=== PATIENT | female | born 1970 | race Caucasian/White ===

== ENCOUNTER → 2021-10-18 | Outpatient (CLI) | payer MEDICAID, SELFPAY ==
[2021-10-18 12:09] LABS: Absolute Lymphocyte Count 2.18 X10^3/uL (0.83-4.51); Absolute Neutrophil Count 3.1 X10^3/uL (2.0-7.7); Basophil# 0.03 X10^3/uL; Basophil% 0.5 % (0-1); Eosinophil# 0.16 X10^3/uL; Eosinophils% 2.7 % (0-5); Hematocrit 39.7 % (37-47); Hemoglobin 12.3 g/dL (12.0-15.0); Lymphocyte # 2.18 X10^3/ul (0.83-4.51); Lymphocyte % 37.1 % (19-41); Mean Corpuscular Hgb 28.4 pg (27.0-32.0); Mean Corpuscular Volume 91.7 fL (81-99); Monocyte# 0.36 X10^3/uL; Monocyte% 6.1 % (0-10); NRBC Flagged by Analyzer 0 % (0-5); Neutrophil # 3.14 X10^3/uL (2.7-7.7); Neutrophil % 53.4 % (47-70); Platelet Count 370 K/mm3 (150-450); RBC Distribution Width CV 13.4 % (11.6-14.6); RBC Distribution Width SD 45.7 fl (35.1-43.9); Red Blood Count 4.33 M/mm3 (4.2-5.4); White Blood Count 5.9 K/mm3 (4.4-11.0)
[2021-10-18 12:33] LABS: ALB/GLOB Ratio 0.9 RATIO (0.9-2.4); AST(SGOT) 20 U/L (15-37); Alanine Aminotransfer ALT/SGPT 55 U/L (13-56); Albumin, Serum 3.4 g/dL (3.2-5.0); Alkaline Phosphatase 57 U/L (45-117); Anion Gap 5 (5-15); BUN 21 mg/dL (7-18); Calcium,Total 8.9 mg/dL (8.5-10.1); Chloride 106 mmol/L (98-107); Cholesterol 200 mg/dL (200); EST Glomerular Filtration Rate 112 mL/min (>60); Est Glom Filt Rate - Afr Amer 135 mL/min (>60); Globulin 3.6 g/dL (2.2-4.2); Glucose 98 mg/dL (74-106); High Density Lipoprotein 50 mg/dL; Potassium 4.1 mmol/L (3.5-5.1); Sodium Level 139 mmol/L (136-145); Triglycerides 104 mg/dL; Very Low Density Lipoprotein 21 mg/dL (5-40)
[2021-10-18 12:47] LABS: Hemoglobin A1c 5.6 % (3.8-5.6)
== END | disposition home or self-care (01) ==
LOC: BIMLAB 08:12
PROVIDERS: PCP Internal Medicine; Referring Provider Internal Medicine; Visit Provider Internal Medicine
DX: R73.03 Prediabetes (principal); E78.5 Hyperlipidemia, unspecified
CPT/HCPCS: 36415; 80053; 80061; 83036; 85025

== ENCOUNTER → 2021-10-26 | Outpatient (CLI) | payer MEDICAID, SELFPAY ==
--- NOTE | 2021-10-26 13:19 | BI_ITS ---
MAMMOGRAPHY - BILATERAL SCREENING REASON FOR EXAM: Female, 51 years old. Routine annual screening examination. PERTINENT HISTORY: Non-contributory. TECHNIQUE: Digital bilateral breast bolivar (3D mammographic acquisition) in the CC and MLO projections. 2-D mediolateral oblique (MLO) and craniocaudad (CC) views of both breasts were obtained. CAD: Full Field Digital Mammography with Computer Added Detection was performed. COMPARISON: Comparison is made with prior study dated 07/18/2020. FINDINGS: Breast Composition: There are scattered areas of fibroglandular density. Persistent 5.1 mm well-defined nodule in the upper lateral portion of the left breast. Correlation with ultrasound is recommended. Stable benign appearing bilateral axillary lymph nodes. No other significant abnormalities are identified. There has been no significant change since the prior study. BI/SCRN MAMM (CAD)W/BOLIVAR BILAT IMPRESSION: Stable 5.1 mm well-defined nodule in the upper lateral aspect of the left breast. Correlation with ultrasound is recommended. ASSESSMENT CATEGORY: BIRADS Category 0: Incomplete. Need additional imaging evaluation. A letter regarding these results will be sent to the patient by the facility within 30 days. Approximately 10% of breast cancers are not detected by mammography. A normal mammogram should not delay biopsy of a clinically suspicious abnormality. [id number] Electronically Signed: Aurelio Cannon MD at 14:12 EDT ,
== END | disposition home or self-care (01) ==
LOC: OPBI 13:17
PROVIDERS: PCP Internal Medicine; Visit Provider Internal Medicine
DX: Z12.31 Encounter for screening mammogram for malignant neoplasm of breast (principal)
CPT/HCPCS: 77063; 77067

== ENCOUNTER → 2021-11-02 | Outpatient (CLI) | payer MEDICAID, SELFPAY ==
--- NOTE | 2021-11-02 10:56 | US_ITS ---
STUDY: ULTRASOUND BREAST - LEFT REASON FOR EXAM: Female, 51 years old. Abnormal screening mammogram. TECHNIQUE: Axial and longitudinal images of the LEFT breast were performed with a high resolution ultrasound transducer. # OF IMAGES: 18 COMPARISON: Comparison is made with prior mammogram dated 10/26/2021 and prior outside examination dated 07/18/2020. FINDINGS: LEFT Breast: The mammographic abnormality corresponds to a 5 mm x 6 mm x 4 mm hypoechoic solid nodule with a central calcification at the 3 o''clock position the breast at 3 cm from the nipple. Biopsy recommended. US/Breast Limited Unilateral IMPRESSION: 5 mm x 6 mm x 4 mm hypoechoic solid nodule with a central calcification at the 3 o''clock position of the breast and 3 sinus on the nipple. Biopsy recommended. ASSESSMENT CATEGORY: BIRADS Category 4: Suspicious - Biopsy Should Be Considered. A letter regarding these results will be sent to the patient by the facility within 30 days. Electronically Signed: Aurelio Cannon MD at 13:49 EDT ,
== END | disposition home or self-care (01) ==
LOC: OPUS 10:54
PROVIDERS: PCP Internal Medicine; Visit Provider Internal Medicine
DX: R92.8 Other abnormal and inconclusive findings on diagnostic imaging of breast (principal)
CPT/HCPCS: 76642

== ENCOUNTER → 2021-11-09 | Outpatient (CLI) | payer MEDICAID, SELFPAY ==
--- NOTE | 2021-11-09 13:40 | BRBX_PTH ---
PATIENT: EYAL COPPOLA LOC: [facility] U#:[id number] AGE/SX: 51/F ROOM: RE11/09/[address]: Dr. Garett Mccormick MD : 1970 BED: DIS: 11/09/2021 SPEC #: [id number] RECD: 11/09/21 14:13 STATUS: JOSÉ REAroldo #: [id number] SAVANNAH: 11/09/21 13:[address]: Garett Mccormick DEPT: SURGICAL PATHOLOGY RECD BY: Tere North ENTERED: 11/10/21 07:55 SP TYPE: BREAST BX OTHR DR: Dr. Florencio Peters MD Tissues: Left breast, NOS Procedures: Surgery Specimen Level IV HEADER OPERATION: Left breast biopsy PRE-OP DIAGNOSIS: Left breast mass TISSUE SUBMITTED: Left breast tissue MICROSCOPIC DIAGNOSIS Left breast mass, core biopsy: Hyalinized fibroadenoma. Negative for atypia or malignancy. See comment. SJ:lizeth 11/14/2021 COMMENT Correlation with clinical, radiologic findings and appropriate follow up are necessary. MICROSCOPIC DESCRIPTION Slides are reviewed. GROSS DESCRIPTION Received in fixative is one container labeled with the patient's name and designated left breast. The specimen consists of multiple elongated fragments of matias-yellow fibroadipose tissue that in aggregate measure 3 x 1.5 x 0.2 cm. The entire specimen is submitted in one cassette. / VALERY:lizeth 11/10/2021 TC:1 CPT: 90286
== END | disposition home or self-care (01) ==
LOC: LABSPEC 14:16
PROVIDERS: PCP Internal Medicine; Referring Provider Surgery; Visit Provider Surgery
DX: D24.2 Benign neoplasm of left breast (principal)
CPT/HCPCS: 88305

== ENCOUNTER → 2023-09-20 | Outpatient (CLI) | payer MEDICAID, SELFPAY ==
[2023-09-20 16:52] LABS: Absolute Lymphocyte Count 2.78 X10^3/uL (0.83-4.51); Absolute Neutrophil Count 4.4 X10^3/uL (2.0-7.7); Basophil# 0.04 X10^3/uL; Basophil% 0.5 % (0-1); Eosinophil# 0.28 X10^3/uL; Eosinophils% 3.5 % (0-5); Hematocrit 40.9 % (37-47); Hemoglobin 12.9 g/dL (12.0-15.0); Lymphocyte # 2.78 X10^3/ul (0.83-4.51); Lymphocyte % 34.9 % (19-41); Mean Corp Hgb Conc 31.5 g/dL (32-36); Mean Corpuscular Volume 88.7 fL (81-99); Mean Platelet Vol. 9.6 fl (6.2-12.0); Monocyte# 0.47 X10^3/uL; Monocyte% 5.9 % (0-10); NRBC Flagged by Analyzer 0 % (0-5); Neutrophil # 4.35 X10^3/uL (2.7-7.7); Neutrophil % 54.6 % (47-70); Platelet Count 384 K/mm3 (150-450); RBC Distribution Width CV 13.6 % (11.6-14.6); RBC Distribution Width SD 44.5 fl (35.1-43.9); Red Blood Count 4.61 M/mm3 (4.2-5.4)
[2023-09-20 17:05] LABS: Vitamin D,25 Hydroxy 37.1 ng/mL
[2023-09-20 17:12] LABS: ALB/GLOB Ratio 1.1 RATIO (0.9-2.4); AST(SGOT) 19 U/L (15-37); Alanine Aminotransfer ALT/SGPT 38 U/L (13-56); Albumin, Serum 3.7 g/dL (3.2-5.0); Alkaline Phosphatase 64 U/L (45-117); Anion Gap 7 (5-15); BUN 20 mg/dL (7-18); BUN/Creat Ratio 30.6 RATIO (10-20); CRP 7.76 mg/L (0.0-3.0); Calcium,Total 9.5 mg/dL (8.5-10.1); Chloride 103 mmol/L (98-107); Creatinine, Serum 0.65 mg/dL (0.55-1.02); EST Glomerular Filtration Rate 101 mL/min (>60); Est Glom Filt Rate - Afr Amer 122 mL/min (>60); Ferritin 38 ng/mL (8-252); Globulin 3.5 g/dL (2.2-4.2); Glucose 109 mg/dL (74-106); Iron 57 ug/dL (50-170); Protein, Total 7.2 g/dL (6.4-8.2); Sodium Level 139 mmol/L (136-145); T4 Free Direct 0.77 ng/dL (0.76-1.46); Thyroid Stim Hormone (TSH) 2.02 uIU/mL (0.358-3.74)
[2023-09-20 17:33] LABS: Erythrocyte Sedimentation Rate 13 mm/hr (0-30)
[2023-09-26 16:10] LABS: Lyme IgG P18 Ab Absent (.); Lyme IgG P23 Ab Absent (.); Lyme IgG P28 Ab Absent (.); Lyme IgG P30 Ab Absent (.); Lyme IgG P39 Ab Absent (.); Lyme IgG P41 Ab Absent (.); Lyme IgG P45 Ab Absent (.); Lyme IgG P58 Ab Absent (.); Lyme IgG P66 Ab Absent (.); Lyme IgG P93 Ab Absent (.); Lyme IgG WB Interpretation Negative (.); Lyme IgM P23 Ab Absent (.); Lyme IgM P39 Ab Absent (.); Lyme IgM P41 Ab Absent (.); Lyme IgM WB Interpretation Negative (.)
== END | disposition home or self-care (01) ==
LOC: BIMLAB 14:37
PROVIDERS: PCP Internal Medicine; Referring Provider Nurse Practitioner; Visit Provider Nurse Practitioner
DX: E78.5 Hyperlipidemia, unspecified (principal); R53.83 Other fatigue; M25.561 Pain in right knee; R73.03 Prediabetes; W57.XXXA Bitten or stung by nonvenomous insect and other nonvenomous arthropods, initial encounter
CPT/HCPCS: 36415; 80053; 82306; 82728; 83036; 83540; 84439; 84443; 85025; 85652; 86140; 86617

== ENCOUNTER → 2023-09-26 | Outpatient (CLI) | payer MEDICAID, SELFPAY ==
--- NOTE | 2023-09-26 09:18 | RAD_ITS ---
STUDY: X-RAY - RIGHT KNEE REASON FOR EXAM: Female, 53 years old. SWELLING TECHNIQUE: 4 view(s) of the knee. COMPARISON: None. FINDINGS: Normal visualized distal femur. Normal visualized proximal tibia and fibula. Normal proximal tibiofibular articulation. There is mild degenerative arthrosis of the medial femorotibial compartment. Normal lateral femorotibial compartment. Normal patellofemoral articulation. The soft tissue structures are unremarkable. RAD/Knee 4 or More Views IMPRESSION: Degenerative arthrosis. Electronically Signed: Ravinder Laird MD at 9:38 EDT ,
[2023-09-26 11:06] LABS: Cholesterol 233 mg/dL (200); High Density Lipoprotein 49 mg/dL; Triglycerides 179 mg/dL; Very Low Density Lipoprotein 36 mg/dL (5-40)
== END | disposition home or self-care (01) ==
PROVIDERS: PCP Internal Medicine; Referring Provider Nurse Practitioner; Visit Provider Nurse Practitioner
DX: M25.561 Pain in right knee (principal); E78.5 Hyperlipidemia, unspecified
CPT/HCPCS: 36415; 73564; 80061

== ENCOUNTER → 2023-10-10 | Outpatient (CLI) | payer MEDICAID, SELFPAY ==
--- NOTE | 2023-10-10 10:34 | BI_ITS ---
MAMMOGRAPHY - BILATERAL SCREENING REASON FOR EXAM: Female, 53 years old. Routine annual screening examination. PERTINENT HISTORY: Non-contributory. Prior left ultrasound-guided breast biopsy. TECHNIQUE: Digital bilateral breast bolivar (3D mammographic acquisition) in the CC and MLO projections. 2-D mediolateral oblique (MLO) and craniocaudad (CC) views of both breasts were obtained. CAD: Full Field Digital Mammography with Computer Added Detection was performed. COMPARISON: Comparison is made with prior study dated October 26, 2021. FINDINGS: Breast Composition: The breasts are almost entirely fatty. There are no dominant masses or suspicious calcifications. A tissue clip marker is seen adjacent to a 5 mm partially calcified nodule in the upper lateral aspect of the left breast. Stable small bilateral axillary lymph nodes. No other significant abnormalities are identified. There has been no significant change since the prior study. BI/SCRN MAMM (CAD)W/BOLIVAR BILAT IMPRESSION: Stable bilateral screening mammogram. Yearly follow-up mammogram recommended. (A) ASSESSMENT CATEGORY: BIRADS Category 2: Benign. A letter regarding these results will be sent to the patient by the facility within 30 days. Approximately 10% of breast cancers are not detected by mammography. A normal mammogram should not delay biopsy of a clinically suspicious abnormality. [id number] Electronically Signed: Aurelio Cannon MD at 11:59 EDT ,
== END | disposition home or self-care (01) ==
PROVIDERS: PCP Internal Medicine; Referring Provider Nurse Practitioner; Visit Provider Nurse Practitioner
DX: Z12.31 Encounter for screening mammogram for malignant neoplasm of breast (principal)
CPT/HCPCS: 77063; 77067

== ENCOUNTER → 2023-11-07 | Outpatient (CLI) | payer MEDICAID, SELFPAY ==
[2023-11-13 13:08] LABS: HPV APTIMA, High Risk Negative (Negative)
== END | disposition home or self-care (01) ==
LOC: LAB 16:34 → LABSPEC 16:43
PROVIDERS: PCP Internal Medicine; Referring Provider Nurse Practitioner Family; Visit Provider Nurse Practitioner Family
DX: Z12.4 Encounter for screening for malignant neoplasm of cervix (principal)
CPT/HCPCS: 87624; 88175; G0145

== ENCOUNTER 2024-05-20 12:24 | Emergency (ER) | payer MEDICAID, SELFPAY ==
[2024-05-20 12:25] VITALS: BP 139/95; PULSE 95; RESP 16; TEMP 36.7; O2SAT 99; BMI 33.5
[2024-05-20 13:54] LABS: Bacteria 0 SEEN /hpf (None Seen); Mucous, Urine 0 SEEN /hpf (<or=2+); White Blood Cells 0 SEEN /hpf (0-5)
[2024-05-20 13:57] LABS: Absolute Lymphocyte Count 3.01 X10^3/uL (0.83-4.51); Basophil# 0.03 X10^3/uL; Basophil% 0.3 % (0-1); Color, Urine Yellow (Yellow); Eosinophil# 0.14 X10^3/uL; Eosinophils% 1.6 % (0-5); Glucose, Dipstick Normal (Normal); Hematocrit 40.5 % (37-47); Hemoglobin 13.1 g/dL (12.0-15.0); Ketone-Dipstick Negative (Negative); Leukocyte Esterase-Dipstick Negative /ul (Negative); Lymphocyte # 3.01 X10^3/ul (0.83-4.51); Lymphocyte % 34.8 % (19-41); Mean Corp Hgb Conc 32.3 g/dL (32-36); Mean Corpuscular Hgb 27.8 pg (27.0-32.0); Mean Corpuscular Volume 85.8 fL (81-99); Mean Platelet Vol. 9.6 fl (6.2-12.0); Monocyte# 0.44 X10^3/uL; Monocyte% 5.1 % (0-10); NRBC Flagged by Analyzer 0 % (0-5); Neutrophil # 5.02 X10^3/uL (2.7-7.7); Nitrite-Dipstick Negative (Negative); Occult Blood-Urine Negative /ul (Negative); Platelet Count 384 K/mm3 (150-450); Protein-Dipstick Negative (Negative); RBC Distribution Width CV 12.9 % (11.6-14.6); RBC Distribution Width SD 40.2 fl (35.1-43.9); Red Blood Count 4.72 M/mm3 (4.2-5.4); Specific Gravity, Urine 1.005 (1.002-1.030); Urine Bilirubin Dipstick Negative (Negative); Urine Clarity Clear (Clear); Urine Urobilinogen Normal (Normal); Urine pH 6.5 (5.0 - 8.0); White Blood Count 8.7 K/mm3 (4.4-11.0)
[2024-05-20 14:16] LABS: ALB/GLOB Ratio 1.5 RATIO (0.9-2.4); AST(SGOT) 16 U/L (<=31); Alanine Aminotransfer ALT/SGPT 23 U/L (<=34); Albumin, Serum 4.4 g/dL (3.5-5.0); Alkaline Phosphatase 57 U/L (35-104); Anion Gap 11 (5-15); BUN 15 mg/dL (4-19); Carbon Dioxide 26.5 mmol/L (21.0-32.0); Chloride 101 mmol/L (98-108); EST Glomerular Filtration Rate 103 (>60); Estimated Creatinine Clearance 92.82 ml/min (50-250); Glucose 94 mg/dL (70-99); Lipase 29 U/L (13-75); Protein, Total 7.4 g/dL (5.9-8.4); Red Blood Cells-Urine 0 SEEN /hpf (0-5); Sodium Level 139 mmol/L (133-145); Squamous Epithelial Cells - UA 0-5 SEEN /hpf (5-10); Total Bilirubin 0.22 mg/dL (0.00-1.30)
[2024-05-20 14:24] VITALS: BP 120/83; PULSE 85; RESP 17; O2SAT 99
[2024-05-20] MEDS: 0.9% Normal Saline (1000mL) 1,000 ML 999 ML IV (14:59)
--- NOTE | 2024-05-20 15:08 | CT_ITS ---
EXAM: CT Abdomen and Pelvis With Intravenous Contrast CLINICAL INDICATION: LEFT LOWER QUADRANT ABDOMINAL PAIN TECHNIQUE: Axial computed tomography images of the abdomen and pelvis with intravenous contrast. This CT exam was performed using one or more of the following dose reduction techniques: automated exposure control, adjustment of the mA and/or kV according to patient size, and/or use of iterative reconstruction technique. COMPARISON: No relevant prior studies available. FINDINGS: LUNG BASES: Unremarkable. No mass. No consolidation. ABDOMEN: LIVER: Hepatomegaly with fatty infiltration. GALLBLADDER AND BILE DUCTS: Unremarkable. No calcified stones. No ductal dilation. PANCREAS: Unremarkable. No mass. No ductal dilation. SPLEEN: Unremarkable. No splenomegaly. ADRENALS: Unremarkable. No mass. KIDNEYS AND URETERS: Unremarkable. No stones within either kidney. No hydronephrosis. STOMACH AND BOWEL: Scattered diverticula in the colon. There is mucosal thickening in the sigmoid colon and descending colon with surrounding inflammation consistent with acute diverticulitis. No abscess. No obstruction. PELVIS: APPENDIX: No findings to suggest acute appendicitis. BLADDER: Unremarkable. No mass. REPRODUCTIVE: Unremarkable as visualized. ABDOMEN and PELVIS: INTRAPERITONEAL SPACE: Unremarkable. No free air. No significant fluid collection. BONES/JOINTS: No acute fracture. No dislocation. SOFT TISSUES: Umbilical hernia containing fat. VASCULATURE: Unremarkable. No abdominal aortic aneurysm. LYMPH NODES: Unremarkable. No enlarged lymph nodes. CT/Abdomen/Pelvis W IV Cont ONLY IMPRESSION: 1. Scattered diverticula in the colon. There is mucosal thickening in the sig moid colon and descending colon with surrounding inflammation consistent with acute diverticulitis. No abscess. 2. Hepatomegaly with fatty infiltration. 3. Umbilical hernia containing fat. 4. No obstructive uropathy. Reading [facility]
[2024-05-20 15:32] LABS: Lactic Acid < 1.0 mmol/L (0.0-2.0)
--- NOTE | 2024-05-20 15:45 | EX.ED.DYSGE1 ---
HPI History of Present Illness Chief Complaint: Abd Pain Narrative Narrative: Chief complaint and HPI: Left lower quadrant abdominal pain. 53-year-old female presents for evaluation of left lower quadrant abdominal pain. Onset abdominal pain Saturday. Pain is described as cramping. Associated symptoms are constipation, nausea, vomiting, fever, decreased p.o. intake. Triage note states diarrhea but patient denies diarrhea to me. She states she is scheduled for an outpatient colonoscopy screening but has yet to have 1 performed. She denies any history of diverticulitis. Has been taking Tylenol for the pain. Denies any URI symptoms, cough, shortness of breath, chest pain, dysuria. Has a previous history of an ectopic that required surgery. Review of systems: See HPI Medications: As listed on the chart Allergies: As listed on the chart PFSH: Per chart Vital signs: As listed on the chart. Reviewed. Physical exam: Gen: A&O x3, NAD Head: Normocephalic, atraumatic Eyes: No sclera icterus, conjunctiva clear ENT: Moist mucous membranes Neck: Trachea midline, No JVD CV: RRR, no murmurs, no peripheral edema Resp: Lungs CTA BL, no w/r/c GI: Abd soft, non-distended, tender to palpation in left lower quadrant, no r/r : No CVA tenderness Musc: Full ROM, no deformity Skin: Warm, dry Neuro: Alert, oriented, grossly intact, sensation intact Psych: Cooperative, appropriate mood and affect [facility] Medical History (Updated 05/20/24 @ 16:[address] Didier Garcia, DO) Ectopic Osteoarthritis Left breast mass Abnormal mammogram of left breast Hyperlipidemia Borderline type 2 diabetes mellitus Colon cancer screening Preventative health care High cholesterol Headache, migraine Depression with anxiety Pre-diabetes History of acute alcohol intoxication Home Medications ?Medication ?Instructions ?Recorded ?Last Taken ?Type ibuprofen 200 mg capsule 400 mg PO Q6H PRN 11/09/21 Unknown History multivitamin 1 tab PO DAILY 09/20/23 Unknown History amoxicillin 875 mg-potassium 1 tab PO BID 10 days #20 tabs 05/20/24 Unknown Rx clavulanate 125 mg tablet fluconazole 150 mg tablet 150 mg PO Q3D 2 doses #2 tabs 05/20/24 Unknown Rx ondansetron 4 mg disintegrating 4 mg PO Q8H PRN PRN Nausea #10 tabs 05/20/24 Unknown Rx tablet Allergy/AdvReac Type Severity Reaction Status Date / Time No Known Allergies Allergy Verified 01/24/24 11:13 Family History (Updated 11/07/23 @ 15:23 by Olivia Farah) Father Age: 74 Non Hodgkin's lymphoma Heart disease Surgical History S/P endometrial ablation Social History (Updated 11/07/23 @ 15:24 by Olivia Farah) adopted: No household members: spouse and children number of children: 2 current occupation: Self employed current occupational exposures/hazards: No pets and animals: Yes leisure activities: exercise, art, reading and volunteer work history of recent travel: No sexually active: Yes Smoking Status: Former smoker how long ago did patient quit smokin yrs second hand exposure: No alcohol intake: former year quit: 2016 details: Sober in 2002, had 2 relapses over the years, sober since 2016 substance use type: does not use diet: low carbohydrate well-balanced diet: daily or most days eating out: rarely or never during the past year weight has: increased > 10 lbs what type of physical activity do you participate in: walking and other frequency: daily duration: 15-30 minutes/day lesly/church: Church seatbelt use: always do you feel safe at home: Yes EXAM Physical Exam Const Vital Signs: 05/20/24 12:25 05/20/24 14:24 05/20/24 16:18 Temperature 98.1 F 98.2 F Temperature Source Temporal Pulse Rate 95 85 89 Respiratory Rate 16 17 18 Blood Pressure 139/95 H 120/83 H 124/80 H Blood Pressure Mean 109 95 94 Pulse Ox 99 99 99 Oxygen Delivery Method Room Air Room Air MDM MDM MDM Narrative Medical decision making narrative: 53-year-old female presents for evaluation of left lower quadrant abdominal pain. Differential diagnosis includes but is not limited to diverticulitis, gastroenteritis, pancreatitis, other intra-abdominal pathology, urolithiasis viral illness, electrolyte abnormality, dehydration, UTI. Abdominal pain workup ordered including CT abdomen pelvis. Patient was offered pain medication as well as antinausea medication but declined. CBC without leukocytosis or anemia. BMP unremarkable. Lactic acid unremarkable. Hepatic panel unremarkable. Lipase unremarkable. UA negative for UTI. CT abdomen pelvis showed scattered diverticuli in the colon. Mucosal thickening in the sigmoid colon and descending colon with surrounding inflammation consistent with acute diverticulitis. No abscess. No perforation. On reevaluation, patient's pain is controlled. She was educated on the findings. Plan is to discharge home on a 10-day course of Augmentin. She was educated to stay on a liquid diet for the next 2 days and slowly advance. Tylenol and Motrin as needed for pain. Zofran as needed for nausea. Strict return precautions. Follow-up with PCP as well as general surgery. She confirmed understand the plan. Patient discharged home. Impression: 1. Acute uncomplicated diverticulitis Lab Data Labs: Laboratory Results - last 24 hr 05/20/24 05/20/24 13:40 14:45 WBC 8.7 RBC 4.72 Hgb 13.1 Hct 40.5 MCV 85.8 MCH 27.8 MCHC 32.3 RDW Std Deviation 40.2 RDW Coeff of Remberto 12.9 Plt Count 384 MPV 9.6 Immature Gran % (Auto) 0.200 Neut % (Auto) 58.0 Lymph % (Auto) 34.8 Perkins % (Auto) 5.1 Eos % (Auto) 1.6 Baso % (Auto) 0.3 Absolute Neuts (auto) 5.0 Absolute Lymphs (auto) 3.01 Nucleated RBC % 0 Sodium 139 Potassium 4.0 Chloride 101 Carbon Dioxide 26.5 Anion Gap 11 BUN 15 Creatinine 0.70 Estim Creat Clear Calc 92.82 Est GFR (MDRD) Non-Af 103 BUN/Creatinine Ratio 22.0 H Glucose 94 Lactic Acid < 1.0 Calcium 10.0 Total Bilirubin 0.22 AST 16 ALT 23 Alkaline Phosphatase 57 Total Protein 7.4 Albumin 4.4 Globulin 3.0 Albumin/Globulin Ratio 1.5 Lipase 29 Urine Color Yellow Urine Clarity Clear Urine pH 6.5 Ur Specific [place] 1.005 Urine Protein Negative Urine Glucose (UA) Normal Urine Ketones Negative Urine Occult Blood Negative Urine Nitrite Negative Urine Bilirubin Negative Urine Urobilinogen Normal Ur Leukocyte Esterase Negative Urine RBC 0 SEEN Urine WBC 0 SEEN Ur Squamous Epith Cells 0-5 SEEN Urine Bacteria 0 SEEN Urine Mucus 0 SEEN Radiography Diagnostic Testing: Clinical Impression(s) from Imaging Studies Abdomen/Pelvis CT 05/20/24 15:08 IMPRESSION: 1. Scattered diverticula in the colon. There is mucosal thickening in the sigmoid colon and descending colon with surrounding inflammation consistent with acute diverticulitis. No abscess. 2. Hepatomegaly with fatty infiltration. 3. Umbilical hernia containing fat. 4. No obstructive uropathy. Reading Location: [facility] Discharge Plan Triage Chief Complaint: Abd Pain ED Provider: Didier Garcia Dx/Rx/DC Orders Clinical Impression: Diverticulitis Instructions: Diverticulosis and Diverticulitis, Diverticulitis Dc, ED Clear Liquid Diet, ED Full Liquid Diet Prescriptions: New amoxicillin-pot clavulanate 875-125 mg tablet 1 tab PO BID 10 Days Qty: 20 0RF ondansetron 4 mg tablet,disintegrating 4 mg PO Q8H PRN PRN (Reason: Nausea) Qty: 10 0RF fluconazole 150 mg tablet 150 mg PO Q3D Qty: 2 0RF Rx Instructions: may repeat second dose 72 hrs after first dose if symptoms persist No Action ibuprofen 200 mg capsule 400 mg PO Q6H PRN multivitamin Tablet 1 tab PO DAILY Primary Care Provider: Florencio Peters Referrals: Florencio Peters MD [Primary Care Provider] - 3-5 Days Geovany Jara MD [Med Staff - Active Staff] - 3-5 Days Activity Restrictions/Additional Instructions: Return back to the ED if symptoms change or worsen. Follow-up with general surgery and PCP. Tylenol and Motrin as needed for pain. Stay on a liquid diet for the next 48 hours. Advance diet as tolerated. Take all of your antibiotics. You received the first dose here in the emergency department. Print Language: Panamanian Disposition Disposition: Home, Self Care Discharge Date/Time: 05/20/24 16:19
[2024-05-20] MEDS: Amox/Clavulanate 875 MG Tablet PO (16:15)
[2024-05-20 16:18] VITALS: BP 124/80; PULSE 89; RESP 18; TEMP 36.8; O2SAT 99
== END 2024-05-20 16:19 | disposition home or self-care (01) ==
PROVIDERS: Emergency Provider Surgery; PCP Internal Medicine; Visit Provider Surgery
DX: K57.92 Diverticulitis of intestine, part unspecified, without perforation or abscess without bleeding (principal); R73.03 Prediabetes; E78.00 Pure hypercholesterolemia, unspecified; Z87.891 Personal history of nicotine dependence; Z79.899 Other long term (current) drug therapy
CPT/HCPCS: 74177; 80053; 81001; 83605; 83690; 85025; 96360; 99283; Q9967; A4216

== ENCOUNTER → 2024-10-09 | Outpatient (CLI) | payer MEDICAID, SELFPAY ==
[2024-10-09 16:35] LABS: Hematocrit 38.2 % (37-47); Hemoglobin 12.3 g/dL (12.0-15.0); Immature Granulocytes Count 0.020 X10^3/uL (0.0-0.0); Mean Corp Hgb Conc 32.2 g/dL (32-36); Mean Corpuscular Volume 86.8 fL (81-99); Mean Platelet Vol. 10.2 fl (6.2-12.0); NRBC Flagged by Analyzer 0 % (0-5); Platelet Count 326 K/mm3 (150-450); RBC Distribution Width CV 12.9 % (11.6-14.6); RBC Distribution Width SD 41.2 fl (35.1-43.9); Red Blood Count 4.40 M/mm3 (4.2-5.4); White Blood Count 7.6 K/mm3 (4.4-11.0)
[2024-10-09 17:18] LABS: AST(SGOT) 16 U/L (<=31); Alanine Aminotransfer ALT/SGPT 20 U/L (<=34); Albumin, Serum 4.2 g/dL (3.5-5.0); Alkaline Phosphatase 51 U/L (35-104); Anion Gap 11 (5-15); BUN 18 mg/dL (4-19); BUN/Creat Ratio 24.0 RATIO (10-20); Calcium,Total 9.8 mg/dL (7.6-11.0); Carbon Dioxide 26.6 mmol/L (21.0-32.0); Chloride 103 mmol/L (98-108); Cholesterol 232 mg/dL (<=200); Globulin 2.5 g/dL (2.2-4.2); Glucose 94 mg/dL (70-99); Low Density Lipoprotein Calc. 152 mg/dL; Potassium 4.4 mmol/L (3.3-5.1); Triglycerides 187 mg/dL; Very Low Density Lipoprotein 37 mg/dL (5-40); cholesterol:hdl ratio screen 5.45
== END | disposition home or self-care (01) ==
LOC: BIMLAB 14:35
PROVIDERS: PCP Internal Medicine; Referring Provider Internal Medicine; Visit Provider Internal Medicine
DX: Z00.00 Encounter for general adult medical examination without abnormal findings (principal); R73.03 Prediabetes
CPT/HCPCS: 36415; 80053; 80061; 83036; 85025

== ENCOUNTER → 2024-11-05 | Outpatient (CLI) | payer MEDICAID, SELFPAY ==
--- NOTE | 2024-11-05 14:56 | CT_ITS ---
PROCEDURE: LIMITED CHEST CT CARDIAC ONLY 11/05/2024 REASON FOR EXAM: RISK ASSESSMENT Family history of coronary artery disease. TECHNIQUE: LIMITED CHEST CT CARDIAC ONLY CONTRAST: None One or more dose reduction techniques were used (e.g., Automated exposure control, adjustment of the mA and/or kV according to patient size, use of iterative reconstruction technique). RADIATION DOSE SUMMARY: CTDlvol: 12.19 mGy DLP: 195.04 mGycm COMPARISON: None FINDINGS: Small benign-appearing mediastinal lymph nodes. The heart is not enlarged. No significant coronary artery calcification is seen. Minimal anterior pericardial thickening The visualized portions of the lungs are clear. CT/Limited Chest CT Cardiac Only IMPRESSION: No significant coronary artery calcification is present. Reading Location: [id number]
--- NOTE | 2024-11-09 09:51 | CA.SCORE ---
Calcium Scoring Date of Study:: 11/05/24 Indications Indications: Risk assessment Coronary Calcium Scoring: High-resolution Computed Tomographic imaging of the chest was performed on [11/05/2024], with particular attention paid to the coronary arteries. Images from the examination were analyzed for the presence and extent of coronary artery calcification , using coronary calcium quantification software. The patient tolerated the procedure well and there were no complications. The results of the coronary calcification analysis are provided below. Findings Coronary Artery Left Main (LM): 0 Left Anterior Descending (LAD): 0 Left Circumflex (LCX): 0 Right Coronary Artery (RCA): 0 Total Agatston Score: 0 Percentile Rankin Calcium Scoring Interpretation: Different methods to categorize the overall amount of coronary plaque. Overall amount CAC SIS Visual of coronary plaque P1 Mild -100 <2 1-2 vessels with mild amount of plaque P2 Moderate 101-300 3-4 1-2 vessels with moderate amount, 3 vessels with mild amount of plaque P3 Severe 301-999 5-7 3 vessels with moderate amount, 1 vessel with severe amount of plaque P4 Extensive >1000 >8 2-3 vessels with severe amount of plaque Conclusion: No atherosclerotic plaquing noted.
== END | disposition home or self-care (01) ==
PROVIDERS: PCP Internal Medicine; Referring Provider Internal Medicine; Visit Provider Internal Medicine
DX: E78.5 Hyperlipidemia, unspecified (principal); R73.03 Prediabetes
CPT/HCPCS: 75571; 76380

== ENCOUNTER → 2024-11-10 | Outpatient (CLI) | payer MEDICAID, SELFPAY ==
--- NOTE | 2024-11-10 10:45 | BI_ITS ---
EXAM: SCRN MAMM (CAD)W/BOLIVAR BILAT DATE: 11/10/2024 CLINICAL HISTORY: F, Age 54 y/o , BREAST CANCER SCREENING No family history. Prior left ultrasound-guided breast biopsy. TECHNIQUE: Procedure Code: [id number] Modality: MG Procedure: SCRN MAMM (CAD)W/BOLIVAR BILAT COMPARISON: Prior exam(s) dated October 10, 2023.. FINDINGS: TISSUE DENSITY: The breasts are almost entirely fatty. Bilateral Breast Mammographic Findings: No significant masses, calcifications or other abnormalities are identified. A tissue clip marker is once again seen within a tiny nodule in the deep upper lateral aspect of the left breast. No suspicious masses, areas of developing architectural distortion, or suspicious calcifications. There has been no significant interval change. BI/SCRN MAMM (CAD)W/BOLIVAR BILAT IMPRESSION: Stable screening bilateral mammogram. OVERALL FINAL ASSESSMENT BI-RADS 2: BENIGN RECOMMENDATION: Routine annual follow-up in 1 Year A letter with findings and recommendations will be mailed to the patient. Reading Location: [place] [id number]
== END | disposition home or self-care (01) ==
PROVIDERS: PCP Internal Medicine; Referring Provider Internal Medicine; Visit Provider Internal Medicine
DX: Z12.31 Encounter for screening mammogram for malignant neoplasm of breast (principal)
CPT/HCPCS: 77063; 77067

== ENCOUNTER 2025-02-02 06:14 | Day surgery (SDC) | payer MEDICAID, SELFPAY ==
[2025-02-02 06:45] LABS: Internal QC Validated? YES +Cl - CLEAR BKGD; Pregnancy, Urine Negative Negative; Record Kit Lot#,Urine Preg 0000980607
[2025-02-02 06:47] VITALS: BP 103/71; PULSE 84; RESP 16; TEMP 36.3; O2SAT 100; BMI 27.8
[2025-02-02] MEDS: Lactated Ringers 1,000 ML 15 ML IV (06:55)
--- NOTE | 2025-02-02 07:05 | PCM.PRE.AN2 ---
ASA Classification* ASA Classification ASA Classification: 2 Assessment & Plan Anesthesia* Anesthesia Assessment Anesthesia Assessment: Discussed sedation and/or anesthesia options, risks, benefits, and alternatives with patient/parents/legal guardian/POA. Questions invited. The patient/parents/legal guardian/POA seems to understand and agrees to proceed with anesthesia plan. Reviewed the physical assessment, medical history, allergy history and patient home medications list prior to surgery/procedure/anesthetic and documented any changes. Performed airway and anesthesia risk assessments. Marjorie horowitz 01/23/25 Anesthesia Type Anesthesia Type: MAC History Source History Obtained from:: Patient and Chart Anesthesia Focused Assessment* Temperature: 97.3 F Pulse Rate: 84 Blood Pressure: 103/71 Respiratory Rate: 16 Pulse Ox: 100 Oxygen Delivery Method: Room Air Airway Assessment Mouth opens: >3 cm Mallampati Score: II Neck Range of motion (ROM): Full ROM Labs Anesthesia Preop lab: CBC WBC, (4.4-11.0) 7.6 K/mm3 10/09/24, 14:35 RBC, (4.2-5.4) 4.40 M/mm3 10/09/24, 14:35 Hgb, (12.0-15.0) 12.3 g/dL 10/09/24, 14:35 Hct, (37-47) 38.2 % 10/09/24, 14:35 Plt Count, (150-450) 326 K/mm3 10/09/24, 14:35 CHEMISTRY Potassium, (3.3-5.1) 4.4 mmol/L 10/09/24, 14:35 Sodium, (133-145) 141 mmol/L 10/09/24, 14:35 BUN, (4-19) 18 mg/dL 10/09/24, 14:35 Creatinine, (0.70-1.20) 0.75 mg/dL 10/09/24, 14:35 Glucose, (70-99) 94 mg/dL 10/09/24, 14:35 TSH, (0.358-3.74) 2.02 uIU/mL 09/20/23, 14:37 COAG Urine Test Negative Negative Today, 06:35 Pre-Assessment Diagnosis/Proposed Procedure Planned Operative Procedure(s): COLONOSCOPY Anesthesia History 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 When Was Last Pacemaker Check QUESTION #4 FULL TEXT: You/Your Family Experience fever (hyperthermia) with Anesthesia Last Oral Intake Last Oral intake: Last Oral Intake NPO since 23:59 02/02/25 06:47 Meds taken in AM with sips of No 02/02/25 06:47 water? Meds patient instructed to take am of surgery PONV PONV - cyber defense analyst: PONV - cyber defense analyst Female Yes 01/29/25 14:40 HX of Motion Sickness No 01/29/25 14:40 HX of N/V After Surgery No 01/29/25 14:40 Non-Smoker Yes 01/29/25 14:40 Duration of Surgery greater No 01/29/25 14:40 than 60 minutes Number of Risk Factors 2 01/29/25 14:40 PONV Score Moderate Risk 01/29/25 14:40 Height & Weight Height & Weight: Anesthesia: Height & Weight Height 5 ft 1 in 02/02/25 06:47 Weight: 66.678 kg 02/02/25 06:47 Body Mass Index (BMI) 27.8 02/02/25 06:47 Respiratory Assessment Respiratory Assessment - cyber defense analyst: Respiratory Tract Infection Hx - cyber defense analyst Hx Respiratory Tract Infection No 01/29/25 14:40 STOP Sleep Apnea STOP Sleep Apnea - cyber defense analyst: STOP Sleep Apnea - cyber defense analyst Hx Hypertension No 01/29/25 14:40 Hx Sleep Apnea No 01/29/25 14:40 CPAP BIPAP Do you snore loudly (louder No 01/29/25 14:40 than talking or can be heard Do you often feel tired/ No 01/29/25 14:40 fatigued/ sleepy during daytime? Has anyone observed you stop No 01/29/25 14:40 breathing during sleep? STOP Results Negative 01/29/25 14:40 QUESTION #5 FULL TEXT : Do you snore loudly (louder than talking or can be heard through closed doors)? Tobacco Use History Tobacco Use History - cyber defense analyst: Tobacco Use History - cyber defense analyst Tobacco Use Smoking Status Former smoker 01/29/25 14:40 Hx Tobacco Use No 01/29/25 14:40 Years Smoking Packs Smoked per Day Smoking Cessation Date was No - quit smoking greater 01/29/25 14:40 within the last 15 years than 15 years ago Hx Smoking Cessation Date Hx Smoking Cessation Counseling Hematologic Medial History Hematologic Hx - cyber defense analyst: Hematologic Medical Hx - trapper bird Hx of Blood Transfusion No 01/29/25 14:40 Hx of Transfusion in last 3 No 01/29/25 14:40 Months Date of Last Transfusion (if within last 3 months) Ever experience any problems No 01/29/25 14:40 with transfusion(s)? Specify any problems Hx of Preganancy in last 3 No 01/29/25 14:40 Months Nurse Filling Out Transfusion FRANCES 01/29/25 14:40 & Questions: Date: 01/29/25 01/29/25 14:40 Time: 14:42 01/29/25 14:40 Patient unable to answer at this time (ie. confused, unrespo /Reproduction History /Reproductive History - cyber defense analyst: /Reproductive Hx- cyber defense analyst Hx Now Gestational Age (in weeks): EDC: Hx Hx Para Hx Section SAB No 11/07/23 15:27 Does the father of the baby or his family experience fever w Father of the baby Malignant Hypertension history comment Active Medications Active Medications: Current Medications Generic Name Dose Route Start Last Admin Trade Name Freq PRN Reason Stop Dose Admin Lactated Ringer's 1,000 mls @ 15 mls/hr 02/02/25 06:30 02/02/25 06:55 IV 15 mls/hr .Q48H SULAIMAN Administration PFSH Medical History (Updated 01/29/25 @ 14:48 by Ivis Santiago) Arthritis Fatty liver Former smoker History of diverticulitis Ectopic Osteoarthritis Left breast mass Abnormal mammogram of left breast Hyperlipidemia Borderline type 2 diabetes mellitus Colon cancer screening Preventative health care High cholesterol Headache, migraine Depression with anxiety Pre-diabetes History of acute alcohol intoxication Home Medications ?Medication ?Instructions ?Recorded ?Last Taken ?Type ibuprofen 200 mg capsule 400 mg PO Q6H PRN fever or pain 11/09/21 Unknown History multivitamin 1 tab PO DAILY 09/20/23 01/31/25 History SEMAGLUTIDE 44 u subcut SA 10/09/24 01/23/25 History Allergy/AdvReac Type Severity Reaction Status Date / Time No Known Allergies Allergy Verified 02/02/25 06:45 Family History (Updated 10/09/24 @ 14:10 by Alissa Paz) Father Age: 75 Non Hodgkin's lymphoma Heart disease Diabetes Surgical History (Updated 01/29/25 @ 14:48 by Ivis Santiago) History of wisdom tooth extraction History of surgery S/P endometrial ablation Social History adopted: No household members: spouse and children number of children: 2 current occupation: Self employed current occupational exposures/hazards: No pets and animals: Yes leisure activities: exercise, art, reading and volunteer work history of recent travel: No sexually active: Yes Smoking Status: Former smoker how long ago did patient quit smokin yrs second hand exposure: No alcohol intake: former year quit: 2017 details: Sober in 2003, had 2 relapses over the years, sober since 2017 substance use type: does not use diet: low carbohydrate well-balanced diet: daily or most days eating out: rarely or never during the past year weight has: increased > 10 lbs what type of physical activity do you participate in: walking and other frequency: daily duration: 15-30 minutes/day lesly/church: Confucianist seatbelt use: always do you feel safe at home: Yes Review of Systems (Anesthesia) ROS Narrative System reviewed and no additional complaints, except as documented. Physical Exam Const alert, oriented x3 and average body habitus Resp normal respiratory effort, normal air movement and clear to auscultation bilaterally Cardio regular rate, regular rhythm and no murmurs; Negative for diaphoretic
[2025-02-02 07:08] VITALS: BP 103/71; PULSE 84; RESP 16; TEMP 36.3; O2SAT 100
--- NOTE | 2025-02-02 07:13 | HP.PCM_ITS ---
HPI - General HPI Narrative EYAL COPPOLA, is a 54 F who presents for screening colonoscopy. Patient has never had a colonoscopy in the past. She denies abdominal pain or blood in the stool. She does note that she had diverticulitis in May of this year. No family history of colon cancer [facility] Medical History (Updated 01/29/25 @ 14:48 by Ivis Santiago) Arthritis Fatty liver Former smoker History of diverticulitis Ectopic Osteoarthritis Left breast mass Abnormal mammogram of left breast Hyperlipidemia Borderline type 2 diabetes mellitus Colon cancer screening Preventative health care High cholesterol Headache, migraine Depression with anxiety Pre-diabetes History of acute alcohol intoxication Home Medications ?Medication ?Instructions ?Recorded ?Last Taken ?Type ibuprofen 200 mg capsule 400 mg PO Q6H PRN fever or p ain 11/09/21 Unknown History multivitamin 1 tab PO DAILY 09/20/2301/10 History SEMAGLUTIDE 44 u subcut SA 10/09/2401/09 History Allergy/AdvReac Type Severity Reaction Status Date / Time No Known Allergies Allergy Verified 02/02/25 06:45 Family History (Updated 10/09/24 @ 14:10 by Alissa Paz) Father Age: 75 Non Hodgkin's lymphoma Heart disease Diabetes Surgical History (Updated 01/29/25 @ 14:48 by Ivis Santiago) History of wisdom tooth extraction History of surgery S/P endometrial ablation Social History adopted: No household members: spouse and children number of children: 2 current occupation: Self employed current occupational exposures/hazards: No pets and animals: Yes leisure activities: exercise, art, reading and volunteer work history of recent travel: No sexually active: Yes Smoking Status: Former smoker how long ago did patient quit smokin yrs second hand exposure: No alcohol intake: former year quit: 2017 details: Sober in 2003, had 2 relapses over the years, sober since 2017 substance use type: does not use diet: low carbohydrate well-balanced diet: daily or most days eating out: rarely or never during the past year weight has: increased > 10 lbs what type of physical activity do you participate in: walking and other frequency: daily duration: 15-30 minutes/day lesly/islam: Protestant seatbelt use: always do you feel safe at home: Yes Past Medical/Surgical History Planned Operation Planned Operative Procedure(s): COLONOSCOPY Previous Hospitalizations/Surgeries HX Hospitalizations: No Any Problems With Anesthesia: No You/Your Family Experience Fever (Hyperthermia) With Anes: No Cholinesterase deficiency: No Cardiovascular Hx Hypertension: No Respiratory Hx Sleep Apnea: No Hx Respiratory Tract Infection/Cold (presently): No Do You Snore Loudly (louder than talking or can be heard): No Do You Often Feel Tired/ Fatigued/ Sleepy Dring Daytime?: No Has Anyone Observed You Stop Breathing During Sleep?: No Result (for STOP score): Negative Smoking Status: Former smoker Neurological Does patient have nerve stimulator: No Miscellaneous Recent Exposure to Contagious Disease: No Allergies No Known Allergies Allergy (Verified 02/02/25 06:45) Discharge Is Pt Admitted From a Correction, or a Retirement: No Who Could Help: FAMILY After D/C, Where Do you Plan to Go: Return Home Vital Signs Vital Signs Vital Signs: 02/02/25 06:46 02/02/25 06:47 02/02/25 07:08 Temperature 97.3 F L 97.3 F L Temperature Source Temporal Pulse Rate 84 84 Respiratory Rate 16 16 Respiratory Pattern Normal Blood Pressure 103/71 103/71 Blood Pressure Mean 81 Blood Pressure Source Monitor Blood Pressure Position Semi-Fowlers Blood Pressure Location Left Arm Pulse Ox 100 100 Oxygen Delivery Method Room Air Room Air Weight Weight: 147 lb Body Mass Index (BMI) 27.8 Physical Exam Const alert and oriented x3 HEENT normocephalic Eyes PERRL Resp normal respiratory effort and normal air movement Cardio regular rate and regular rhythm GI soft to palpation, non-tender and non-distended Extremity normal to inspection Assessment & Plan Assessment/Plan (1) Colon cancer screening: PLAN: I explained endoscopy in detail to the patient. I explained the risks including but not limited to stroke or heart attack with anesthesia, perforation of the GI tract, bleeding, infection. I explained that any of these could necessitate further emergency surgery. The patient understands and all questions were answered sufficiently. The patient wishes to proceed with procedure. Garett Mccormick MD Pager: [facility] [address] [place] [address], [address] [place] [address] Office: Surgery Risks - Colonoscopy Risks Include but are not Limited To: Risks include but are not limited to: Bleeding, perforation requiring further surgery, inability to complete colonoscopy requiring barium enema.
--- NOTE | 2025-02-02 07:48 | OP.COLON_ITS ---
Patient Name: Juana Ellsworth Procedure Date: 02/02/2025 7:24 AM Date of : 1970 Age: 54 Procedure: Colonoscopy Indications: Screening for colorectal malignant neoplasm Providers: Garett Mccormick MD Referring MD: Florencio Peters MD Medicines: Propofol per Anesthesia Patient Profile: This is a 54 year old female. Refer to note in patient chart for documentation of history and physical. Last Colonoscopy: none. The patient's first colonoscopy is today. Complications: No immediate complications. Estimated blood loss: Minimal. Procedure: Pre-Anesthesia Assessment: - Prior to the procedure, a History and Physical was performed, and patient medications and allergies were reviewed. The patient's tolerance of previous anesthesia was also reviewed. The risks and benefits of the procedure and the sedation options and risks were discussed with the patient. All questions were answered, and informed consent was obtained. Prior Anticoagulants: The patient has taken no anticoagulant or antiplatelet agents. After reviewing the risks and benefits, the patient was deemed in satisfactory condition to undergo the procedure. After I obtained informed consent, the scope was passed under direct vision. Throughout the procedure, the patient's blood pressure, pulse, and oxygen saturations were monitored continuously. The Colonoscope was introduced through the anus and advanced to the cecum, identified by appendiceal orifice and ileocecal valve. The colonoscopy was performed without difficulty. The patient tolerated the procedure well. The quality of the bowel preparation was good. The ileocecal valve, appendiceal orifice, and rectum were photographed. Scope In: 7:33:45 AM Scope Withdrawal Time 0 hours 6 minutes 31 seconds Scope Out: 7:44:48 AM Total Procedure Duration Time 0 hours 11 minutes 3 seconds Findings: A few small-mouthed diverticula were found in the sigmoid colon. The exam was otherwise without abnormality on direct and retroflexion views. Impression: - Diverticulosis in the sigmoid colon. - The examination was otherwise normal on direct and retroflexion views. - No specimens collected. Recommendation: - Discharge patient to home. - Resume previous diet. - Continue present medications. - Repeat colonoscopy in 10 years for screening purposes. Procedure Code(s): --- Professional --- 65030, Colonoscopy, flexible; diagnostic, including collection of specimen(s) by brushing or washing, when performed (separate procedure) Diagnosis Code(s): --- Professional --- Z12.11, Encounter for screening for malignant neoplasm of colon K57.30, Diverticulosis of large intestine without perforation or abscess without bleeding CPT copyright 2021 [employer] [employer]. All rights reserved. The codes documented in this report are preliminary and upon activities aide review may be revised to meet current compliance requirements. Garett Mccormick MD 02/02/2025 7:48:09 AM This report has been signed electronically. Number of Addenda: 0 Note Initiated On: 02/02/2025 7:24 AM
--- NOTE | 2025-02-02 07:48 | OP.PROVAT_ITS ---
02/02/2025 Florencio Peters MD [address] [place] [address] [place] [address] Re : Colonoscopy procedure for Juana Ellsworth Dear Dr. Peters This procedure was performed on Sunday, February 02, 2025. My impressions and recommendations are as follows: Impressions : - Diverticulosis in the sigmoid colon. - The examination was otherwise normal on direct and retroflexion views. - No specimens collected. Recommendations : - Discharge patient to home. - Resume previous diet. - Continue present medications. - Repeat colonoscopy in 10 years for screening purposes. My findings are described in the full procedure note, which is enclosed. If I can be of further assistance, please feel free to contact me at Doctor phone number(s): , Work: . Sincerely, Garett Mccormick MD 02/02/2025 7:48:09 AM This report has been signed electronically.
[2025-02-02 07:50] VITALS: BP 103/71; BP 99/72; PULSE 89; RESP 16; TEMP 36.6; O2SAT 97
[2025-02-02 07:55] VITALS: BP 103/71; BP 106/71; PULSE 85; RESP 16; O2SAT 98
--- NOTE | 2025-02-02 07:59 | PCM.POST.ANE ---
Anesthesia: Postop Eval I Current Vital Signs Temperature: 97.2 F Pulse Rate: 87 Blood Pressure: 99/72 Respiratory Rate: 16 Pulse Ox: 97 Oxygen Delivery Method: Room Air Assessment Airway patent: Yes Spontaneous unlabored respirations: Yes Mental status: Awake nausea: No Vomiting: No Anesthesia Complication: No Fluid Hydration Crystalloid volume administer (ml): 500 Total IV fluid infused: 500 Progress Note Anesthesia document: Postop Eval 1 completed: Yes
[2025-02-02 08:00] VITALS: BP 103/71; BP 105/74; BP 99/72; PULSE 86; PULSE 87; RESP 16; TEMP 36.2; O2SAT 100; O2SAT 97
[2025-02-02 08:20] VITALS: BP 103/71
--- NOTE | 2025-02-02 13:36 | PCM.POSTANE2 ---
Anesthesia Postop Eval I Sum Postop Eval Completion status Anesthesia document: Postop Eval 1 completed: Yes Anesthesia Postop Eval I Summary Anesthesia Postop Eval I Summary: Anesthesia Postop Eval I: Assessment Summary Airway patent Yes 02/02/25 08:00 [email or web address] Spontaneous unlabored Yes 02/02/25 08:00 [email or web address] respirations Mental status Awake 02/02/25 08:00 [email or web address] nausea No 02/02/25 08:00 [email or web address] Vomiting No 02/02/25 08:00 [email or web address] Anesthesia Postop Eval I: Fluid Summary Crystalloid volume administer 500 02/02/25 08:00 [email or web address] (ml) Colloids volume administered ( ml) Blood Product volume administered (ml) Total IV fluid infused 500 02/02/25 08:00 [email or web address] Anesthesia Postop Eval I: Summary Notes Anesthesia Complication No 02/02/25 08:00 [email or web address] Anesthesia Complication Comment: Post-operative progress note Anesthesia: Postop Eval II Evaluation Mental status: Awake Pain Level: 0 nausea: No Vomiting: No Complications Anesthesia Complication: No
== END 2025-02-02 08:24 | disposition home or self-care (01) ==
LOC: EN 06:15 → AC 06:15
PROVIDERS: Student in an Organized Health Care Education/Training Program; PCP Internal Medicine; Referring Provider Internal Medicine; Visit Provider Surgery
PROC: 0DJD8ZZ Inspection of Lower Intestinal Tract, Via Natural or Artificial Opening Endoscopic (ICD-10-PCS; CPT 45378; principal; 2025-02-02 07:25)
DX: Z12.11 Encounter for screening for malignant neoplasm of colon (principal); K57.30 Diverticulosis of large intestine without perforation or abscess without bleeding; E78.00 Pure hypercholesterolemia, unspecified; Z87.891 Personal history of nicotine dependence
CPT/HCPCS: 45378; 81025; J2405